=== PATIENT | male | born 1970 | race Caucasian/White ===

== ENCOUNTER → 2019-09-11 | Outpatient (CLI) | payer BC | LOC: ZCOL.LAB 15:06 | DX: Z20.828 Contact with and (suspected) exposure to other viral communicable diseases (principal) ==

== ENCOUNTER 2021-10-14 07:36 | Day surgery (SDC) | payer BC ==
[~2021-10-14] VITALS: Ht 190.5 cm; Wt 66.9 kg
[2021-10-14 09:10] VITALS: BP 121/69; PULSE 62; TEMP 97.4
[2021-10-14 09:25] VITALS: BP 104/82; PULSE 59
--- NOTE | 2021-10-14 09:38 | NUR ---
0910 - PT arrives drowsy but oriented; ambulated 2:1 to chair from cart. Monitors applied and vitals obtained; warm blankets provided and non-slip socks remain on. Verbal room report obtained; PT denies pain/nausea and snack/drink provided. Coffee provided to visitor. Call [facility] remains within reach if needed. 09 - VSS. PT has finished snack and drink; continues to deny pain/nausea. Expressed desire to be discharged. Awaiting DR to speak w/ PT.
[2021-10-14 09:40] VITALS: BP 114/76; PULSE 54
--- NOTE | 2021-10-14 09:55 | NUR ---
0940 - VSS. PT continues to deny pain/nausea. IV discontinued. Catheter tip intact and pressure bandage applied; no redness or swelling noted. DC instructions and educational material revewed w/ PT who verbalized understanding and signed the related paperwork. Questions answered to PT satisfaction. PT refused RN assistance changing into personal belongings; call [facility] remains within reach if needed. Awaiting to be ready and DR to speak w/ PT.
--- NOTE | 2021-10-14 10:34 | NUR ---
1018 - PT dismissed from endo via wheelchair to the PT entrence by Denise SINGH; is present and discharged via wheelchair at the same time, ramesh/ Ina SINGH. PT has DC packet and personal belongings in hand; PT was transferred into the care of his father, who is driving private car.
[2021-10-14 12:16] VITALS: BP 115/77; PULSE 55; TEMP 97.9
== END 2021-10-14 10:20 | disposition home or self-care (01) ==
LOC: SDCO 07:36
DX: Z12.11 Encounter for screening for malignant neoplasm of colon (principal); D12.5 Benign neoplasm of sigmoid colon; Z80.0 Family history of malignant neoplasm of digestive organs
CPT/HCPCS: J2704